=== PATIENT | male | born 1995 | race Caucasian/White ===

== ENCOUNTER 2020-09-12 10:11 | Emergency (ER) | payer OTHER ==
[~2020-09-12] VITALS: Ht 177.8 cm; Wt 72.6 kg
[~2020-09-12 10:11] MED LIST: Zofran Odt4 MG SL
[2020-09-12] MEDS ORDERED: GABA300 PO (10:24)
[2020-09-12] MEDS ORDERED: Chantix1 MG PO (10:24)
[2020-09-12 10:47] LABS: BASOPHILS ABSOLUTE AUTO 0.04 K/mm3 (0.00-0.23); BASOPHILS PERCENT AUTO 1 % (0-2); EOSINOPHILS ABSOLUTE AUTO 0.06 K/mm3 (0.00-0.68); EOSINOPHILS PERCENT AUTO 1 % (0-6); Hematocrit 38.5 % (37.0-53.0); Hemoglobin 13.3 g/dL (13.5-17.5); IMMATURE GRAN ABSOLUTE AUTO 0.02 K/mm3 (0.00-0.10); IMMATURE GRAN PERCENT AUTO 0 % (0-1); LYMPHOCYTES ABSOLUTE AUTO 1.99 K/mm3 (0.84-5.20); LYMPHOCYTES PERCENT AUTO 23 % (21-46); MONOCYTES ABSOLUTE AUTO 0.51 K/mm3 (0.16-1.47); MONOCYTES PERCENT AUTO 6 % (4-13); Mean Corpuscular HGB 30.2 pg (26.0-34.0); Mean Corpuscular HGB Conc 34.5 g/dL (31.5-36.5); Mean Corpuscular Volume 88 fL (80-100); Mean Platelet Volume 10.7 fL (9.1-12.4); NEUTROPHILS ABSOLUTE AUTO 6.06 K/mm3 (1.96-9.15); NEUTROPHILS PERCENT AUTO 70 % (41-73); Platelet Count 269 K/mm3 (150-400); RDW Coefficient Variation 12.7 % (11.7-14.2); RDW Standard Deviation 40.8 fL (35.1-46.3); White Blood Cell Count 8.68 K/mm3 (4.00-11.30)
[2020-09-12 11:02] LABS: Alanine Aminotransfer (ALT/SGP 20 U/L (12-78); Albumin, Blood 4.3 g/dL (3.4-5.0); Albumin/Globulin Ratio 1.3 (0.8-1.8); Alk Phos 51 U/L (50-136); Anion Gap 7 mmol/L (6-16); Aspartate Aminotrans (AST/SGOT 15 U/L (12-37); Bilirubin, Total 0.5 mg/dL (0.1-1.0); Blood Urea Nitrogen 10 mg/dL (8-24); Bun/Creatinine Ratio 11.8 (12.0-20.0); CO2, Blood 24 mmol/L (21-32); Calcium, Blood 9.7 mg/dL (8.5-10.1); Chloride, Blood 114 mmol/L (98-108); Creatinine, Blood 0.85 mg/dL (0.60-1.20); Globulin, Blood 3.2 g/dL (2.2-4.0); Glomerular Filtration Rate >60 (60-); Glucose, Blood 88 mg/dL (70-99); Potassium, Blood 3.6 mmol/L (3.5-5.5); Sodium, Blood 145 mmol/L (136-145); Total Protein, Blood 7.5 g/dL (6.4-8.2); Troponin I <0.015 ng/mL (0.000-0.040)
[2020-09-12] MEDS ORDERED: HYDR1TAB94 PO (20:01)
[2020-09-12] MEDS ORDERED: Protonix40 MG PO (20:01)
[2020-09-12] MEDS ORDERED: LORA2 PO (20:01)
== END 2020-09-12 11:57 | disposition home or self-care (01) ==
LOC: ER 10:11
PROVIDERS: Physician Assistant
DX: F41.9 Anxiety disorder, unspecified (principal); R07.89 Other chest pain; Z79.899 Other long term (current) drug therapy; Z91.040 Latex allergy status; Z91.09 Other allergy status, other than to drugs and biological substances
CPT/HCPCS: 36415; 71046; 80053; 84484; 85025; 85379; 93005; 93010; 96374; 96375; 99284-25; J1885; J2060; J2405

== ENCOUNTER 2020-09-12 19:01 | Emergency (ER) | payer OTHER ==
[~2020-09-12] VITALS: Ht 175.3 cm; Wt 72.6 kg
[~2020-09-12 19:01] MED LIST changes: +Chantix1 MG PO; +GABA300 PO
[2020-09-12] MEDS ORDERED: HYDR1TAB94 PO (20:01)
[2020-09-12] MEDS ORDERED: LORA2 PO (20:01)
[2020-09-12] MEDS ORDERED: Protonix40 MG PO (20:01)
== END 2020-09-12 21:02 | disposition home or self-care (01) ==
LOC: ER 19:01
DX: G89.29 Other chronic pain (principal); R07.9 Chest pain, unspecified; R10.9 Unspecified abdominal pain; F41.9 Anxiety disorder, unspecified; F32.9 Major depressive disorder, single episode, unspecified; F17.210 Nicotine dependence, cigarettes, uncomplicated; Z79.899 Other long term (current) drug therapy
CPT/HCPCS: 96372-59; 99283-25; A9270-GY; J1170; J2060

== ENCOUNTER 2022-08-17 06:54 | Emergency (ER) | payer OTHER ==
[~2022-08-17] VITALS: Ht 180.3 cm; Wt 99.8 kg
[~2022-08-17 06:54] MED LIST changes: +HYDR1TAB94 PO; +LORA2 PO; +Protonix40 MG PO
[2022-08-17] MEDS ORDERED: LORA.5 PO (08:47)
== END 2022-08-17 08:56 | disposition home or self-care (01) ==
LOC: ER 06:54
DX: R56.9 Unspecified convulsions (principal); F41.9 Anxiety disorder, unspecified; R07.9 Chest pain, unspecified; F17.210 Nicotine dependence, cigarettes, uncomplicated; Z91.040 Latex allergy status; Z91.048 Other nonmedicinal substance allergy status; Z79.899 Other long term (current) drug therapy
CPT/HCPCS: 36415; 93005; 93010; 96374; 99283-25; A9270; J2060

== ENCOUNTER 2022-08-17 13:14 | Emergency (ER) | payer OTHER ==
[~2022-08-17] VITALS: Ht 177.8 cm; Wt 99.8 kg
[~2022-08-17 13:14] MED LIST changes: +LORA.5 PO
== END 2022-08-17 16:26 | disposition home or self-care (01) ==
LOC: ER 13:14
DX: F41.0 Panic disorder [episodic paroxysmal anxiety] (principal); R56.9 Unspecified convulsions; F17.210 Nicotine dependence, cigarettes, uncomplicated; Z91.040 Latex allergy status; Z88.8 Allergy status to other drugs, medicaments and biological substances; Z79.899 Other long term (current) drug therapy
CPT/HCPCS: 96372; 99283-25; A9270; J1790